=== PATIENT | male | born 1960 | race Caucasian/White ===

== ENCOUNTER 2019-07-23 08:32 | Outpatient (CLI) | payer OTHER, SELFPAY ==
--- NOTE | ~2019-07-23 | CT_ITS ---
EXAMINATION: CT chest abdomen pelvis w con DATE: 07/23/2019 09:21 INDICATION: Colorectal cancer TECHNIQUE: Computed tomography (CT) of the chest, abdomen, and pelvis was performed with 100 mL Omnip aque-350 intravenous contrast. Automated exposure control and iterative reconstruction technique were employed. The dose-length product was 376.38 mGy-cm. COMPARISON: None FINDINGS: CHEST CT: Moderate emphysema with prominent paraseptal bullous changes at the medial periphery of the right upp er and to lesser degree left upper lobes. Subtle centrilobular groundglass opacities throughout the l ungs with lower lung predominance consistent with bronchiolitis. No suspicious pulmonary nodules, mor e focal airspace consolidation, pulmonary edema or pleural effusion. No pneumothorax. Heart size is n ormal. Atherosclerotic coronary artery calcification. No pericardial effusion. Thoracic aorta is norm al in caliber with no dissection. No pathologically enlarged thoracic lymphadenopathy. Right internal jugular central venous port catheter with distal tip at the superior cavoatrial junction. Moderate u pper lumbar levoscoliosis with mild spondylosis. Moderate to severe spondylosis at the lumbar and low er cervical spine. No suspicious lytic or blastic bone lesions. ABDOMEN/PELVIS CT: Liver, gallbladder, spleen, bilateral adrenal glands and kidneys are normal. Multiple dystrophic calc ifications in the pancreas predominantly at the head and uncinate process consistent with sequela of chronic pancreatitis. Normal appendix. There is prominent wall thickening of the terminal ileum with mucosal hyperemia. Relatively mild wall thickening in the adjacent cecum. Additional short segment of circumferential wall thickening at the distal sigmoid colon which has a relatively abrupt transition to relatively normal wall thickness at the rectum which raises concern for malignancy. No bowel obst ruction. Bladder is normal. No free intraperitoneal gas or fluid. No pathologically enlarged abdomina l or pelvic lymphadenopathy. There is calcified atherosclerosis of the aorta and the lateral iliac ar teries. Bone island with spiculated margins at the right side of S1. No suspicious lytic or blastic b one lesions. IMPRESSION: 1. No evident metastatic disease in the chest, abdomen or pelvis. 2. Prominent wall thickening at the terminal ileum and to a lesser degree at the cecum consistent wit h colitis/terminal ileitis. Distribution raises suspicion for Crohn's disease with differential inclu ding infection. 3. Additional short segment of wall thickening at the distal sigmoid colon with relatively abrupt tra nsition to relatively normal wall at the rectum. Differential would include malignancy or focal colit is either inflammatory or infectious in etiology. 4. Dystrophic pancreatic calcifications consistent with sequela of chronic pancreatitis. 5. Mild to moderate upper lung and paraseptal predominant emphysema. 6. Diffuse tiny centrilobular groundglass opacities throughout both lungs with lower lung predominanc e consistent with bronchiolitis. Reviewed, dictated and finalized at location A. [employer] IMPRESSION: 1. No evident metastatic disease in the chest, abdomen or pelvis. 2. Prominent wall thickening at the terminal ileum and to a lesser degree at th e cecum consistent with colitis/terminal ileitis. Distribution raises suspicion for Crohn's disease with differential including infection. 3. Additional short segment of wall thickening at the distal sigmoid colon with relatively abrupt transition to relatively normal wall at the rectum. Differen tial would include malignancy or focal colitis either inflammatory or infectiou s in etiology. 4. Dystrophic pancreatic calcifications consistent with sequela of chronic weeks
[2019-07-23 09:12] LABS: Estimated Glomerular Filt Rate > 60
== END 2019-07-23 08:33 | disposition home or self-care (01) ==
PROVIDERS: PCP Family Medicine Adolescent Medicine; Visit Provider Internal Medicine Hematology & Oncology
DX: C19 Malignant neoplasm of rectosigmoid junction (principal); J43.9 Emphysema, unspecified; R91.8 Other nonspecific abnormal finding of lung field
CPT/HCPCS: 36415; 71260; 74177; Q9967

== ENCOUNTER 2020-09-03 08:41 | Outpatient (CLI) | payer OTHER, SELFPAY ==
--- NOTE | ~2020-09-03 | CT_ITS ---
EXAMINATION: CT chest abdomen pelvis w con DATE: 09/03/2020 09:17 INDICATION: Rectal cancer TECHNIQUE: Transaxial computed tomographic images of the chest, abdomen, and pelvis were obtained aft er the administration of 100 cc of Omnipaque 350 intravenous contrast. The dose-length product (DLP) was 539.13 mGy-cm. Automated exposure control and iterative reconstruction technique were employed. COMPARISON: 07/23/2019 FINDINGS: CHEST CT: Again noted is moderate emphysema with bullous change of the upper lobes. A right internal jugular Po rt-A-Cath ends with its tip in the distal superior vena cava. There is a new 12 mm x 8 mm pleural-bas ed nodule of the right lower lobe. There is no pleural effusion or pneumothorax. No pathologically en larged thoracic lymph nodes are identified. The heart size is normal. ABDOMEN/PELVIS CT: The liver, spleen, gallbladder, and adrenal glands are normal. There are punctate calcifications of t he pancreas, consistent with chronic pancreatitis. The kidneys are unremarkable. There is calcified a therosclerosis of the aorta and many of the other arteries. No pathologically enlarged abdominal or p elvic lymph nodes are identified. There is no free intraperitoneal gas or evidence of bowel obstructi on. Surgical changes are noted in the rectum. There also appears to have been interval resection of t he terminal ileum and ascending colon. There is severe lumbar spondylosis. IMPRESSION: 1. New indeterminate 12 mm nodule of the right lower lobe which could reflect metastatic disease, maria fernanda susu bronchogenic carcinoma, or less likely rounded atelectasis. CT-guided biopsy is recommended. Reviewed, dictated and finalized at location B. IMPRESSION: 1. New indeterminate 12 mm nodule of the right lower lobe which could reflect m etastatic disease, primary bronchogenic carcinoma, or less likely rounded atele ctasis. CT-guided biopsy is recommended.
[2020-09-03 09:12] LABS: Estimated Glomerular Filt Rate > 60
== END 2020-09-03 08:42 | disposition home or self-care (01) ==
LOC: ANHIMG 08:43
PROVIDERS: PCP Family Medicine Adolescent Medicine; Visit Provider Internal Medicine Hematology & Oncology
DX: C20 Malignant neoplasm of rectum (principal); R91.1 Solitary pulmonary nodule
CPT/HCPCS: 71260; 74177; Q9967

== ENCOUNTER 2020-09-25 08:49 | Outpatient (CLI) | payer OTHER, SELFPAY ==
--- NOTE | ~2020-09-25 | PE_ITS ---
EXAMINATION: PET skull to mid thigh DATE: 09/25/2020 10:40 INDICATION: Lung nodule TECHNIQUE: Blood glucose level was 96 mg/dL. 12.23 mCi of 18-fluorodeoxyglucose (18-FDG) was administ ered i.v. Low dose computed tomography (CT) images were acquired from the base of the brain to the pr oximal thighs for attenuation correction and anatomic localization. Positron emission tomography (PET ) images were acquired in the same distribution beginning 59 minutes after injection. Images includin g fused PET/CT images were reconstructed in axial, coronal, and sagittal planes. Automated exposure c ontrol technique was employed. The dose-length product was 394.90mGy-cm. COMPARISON: CT dated 09/03/2020 FINDINGS: Head/neck: There is symmetric increased activity in the oral cavity, parotid glands, submandibular glands, efra ngeal muscles and ocular muscles without CT correlate, likely physiologic. No pathologically enlarged cervical lymphadenopathy or suspicious foci of increased FDG uptake in the visualized head or neck. Chest: Moderate paraseptal and upper lung predominant emphysema. Again seen is a small nodular opacity at th e anterior basilar right lower lobe abutting and likely retracting the major fissure and which is wit hout associated FDG uptake. No other pulmonary nodules, pneumonia or other pulmonary infiltrates. No pleural effusion. Heart size is normal. Atherosclerotic coronary artery calcifications. Tip of the ri t internal jugular central venous port catheter at the superior cavoatrial junction. Thoracic aorta is normal in caliber. No pathologically enlarged thoracic lymphadenopathy or other suspicious FDG av id lesions in the thorax. Abdomen/pelvis/proximal thighs: Physiologic renal accumulation and excretion of FDG activity in the kidneys, bladder and along portio ns of ureters. Normal degree and heterogenous pattern of increased uptake throughout the liver withou t radiologic correlate or dominant FDG avid lesion. Numerous punctate calcifications at the head and body of the pancreas which are likely sequela of chronic pancreatitis. The gallbladder, spleen and bi lateral adrenal glands are normal. Moderate uptake scattered throughout the bowels without radiologic correlate, also likely physiologic. Change of prior bowel surgery with several anastomotic suture li mateo. There is significantly more intense FDG activity with maximal SUV of 7.8 at the anus without rad iologic correlate. Mild increased uptake at the left ischial tuberosity and overlying the bilateral g reater trochanters likely related to mild bursitis. No other abnormal foci of increased FDG uptake or pathologically enlarged lymphadenopathy in the abdomen, pelvis or proximal thighs. Musculoskeletal: Moderate upper thoracic levoscoliosis with mild compensatory dextro scoliosis in the caudal thoracic spine. Mild to moderate thoracic spondylosis with severe cervical and lumbar spondylosis. Sclerotic b one island with spiculated margins in the right sacral ala. No suspicious lytic, blastic or FDG avid bone lesions. IMPRESSION: 1. No evident FDG uptake associated with a 12 x 8 mm pleural-based nodule in the anterobasilar right lower lobe. While reassuring and favoring other old granulomatous disease or round atelectasis over m alignancy, would recommend six-month follow-up chest CT. 2. Prominent FDG uptake without radiologic correlate at the anus which could be infectious, inflammat ory or potentially malignant in etiology. Consider correlation with digital rectal examination and an oscopy. 3. Moderate emphysema. 4. Dystrophic calcifications at the head and body of the pancreas consistent with sequela of chronic pancreatitis. Reviewed, dictated and finalized at location A. IMPRESSION: 1. No
[2020-09-25 09:12] LABS: Glucose Point of Care 96 (65-105)
== END 2020-09-25 08:50 | disposition home or self-care (01) ==
PROVIDERS: PCP Family Medicine Adolescent Medicine; Visit Provider Internal Medicine Hematology & Oncology
DX: R91.1 Solitary pulmonary nodule (principal); J43.9 Emphysema, unspecified
CPT/HCPCS: 78815; 82948; A9552

== ENCOUNTER 2023-08-31 10:17 | Outpatient (CLI) | payer OTHER, SELFPAY ==
--- NOTE | 2023-10-28 08:50 | WPDPFTINT ---
PFT Procedure Performed PFT Procedure Performed Spirometry with Pre/Post Bronchodilator Plethysmography (Lung Vol) Diffusing Cap (DLCO) Flow Vol Loop PFT Interpretation Lung volumes were measured with the body plethysmography method. Lung volumes are unremarkable. Spirometry showed diminished expiratory flow rates and a diminished FEV1 to FVC ratio 37%, consistent with obstructive airway disease. Following administration of a bronchodilator there was no significant increase in expiratory flow rates. Lung diffusion capacity is severely reduced at 46% predicted. The diminished lung diffusion capacity coupled with a low alveolar volume and a low DLCO/VA ratio indicates loss of alveolar capillary structure as seen in emphysema or interstitial lung disease. Clinical correlation advised. The flow-volume loop is consistent with emphysema. Impression: Severe obstructive airway disease with no response to bronchodilators on this testing. Severely reduced lung diffusion capacity.
== END 2023-08-31 10:18 | disposition home or self-care (01) ==
LOC: ANHPFT 10:17
PROVIDERS: PCP Family Medicine Adolescent Medicine; Visit Provider Physician Assistant
DX: J44.9 Chronic obstructive pulmonary disease, unspecified (principal)
CPT/HCPCS: 94060; 94726; 94729

== ENCOUNTER 2023-11-11 08:32 | Outpatient (CLI) | payer OTHER, SELFPAY ==
[2023-11-11 08:30] VITALS: PULSE 83; O2SAT 93
[2023-11-11 08:35] VITALS: PULSE 95; O2SAT 86
[2023-11-11 08:40] VITALS: PULSE 98; O2SAT 88
[2023-11-11 08:45] VITALS: PULSE 99; O2SAT 91
[2023-11-11 09:00] VITALS: PULSE 85; O2SAT 93
--- NOTE | 2023-11-11 11:40 | HOMEO2EVAL ---
Evaluation was performed at [facility] Home Oxygen Evaluation RC: Home Oxygen (O2) Evaluation Start: 11/11/23 11:38 Freq: Status: Active Protocol: RPE Activity Type Activity Date Activity User E-sign Co-sign Detail Recorded Client Recorded Date Recorded By Document 11/11/23 08:30 REGIS [email or web address] 11/11/23 11:40 REGIS Document 11/11/23 08:35 [email or web address] [email or web address] 11/11/23 11:40 REGIS Document 11/11/23 08:40 [email or web address] [email or web address] 11/11/23 11:40 REGIS Document 11/11/23 08:45 [email or web address] [email or web address] 11/11/23 11:40 REGIS Document 11/11/23 09:00 [email or web address] [email or web address] 11/11/23 11:40 REGIS 11/11/23 11/11/23 11/11/23 08:30 08:35 08:40 Home O2 Evaluation [Oxygen] -Test Phase Resting Exercise Exercise -Oxygen Delivery Room Air Room Air Nasal Cannula -Oxygen Flow Rate (L/min) 1 [Pulse Oximetry] -Pulse Oximetry (90-100 %) 93 86 L 88 L [Pulse Rate] -Pulse Rate (60-100 beats/min) 83 95 98 [Evaluation] -Activity Tolerance [Exercise] -Ambulation Distance (feet) -Ambulation Distance (meters) [Charges] -Evaluation Charges O2 Evaluation by Pulmonary 11/11/23 11/11/23 08:45 09:00 Home O2 Evaluation [Oxygen] -Test Phase Exercise Resting -Oxygen Delivery Nasal Cannula Room Air -Oxygen Flow Rate (L/min) 2 [Pulse Oximetry] -Pulse Oximetry (90-100 %) 91 93 [Pulse Rate] -Pulse Rate (60-100 beats/min) 99 85 [Evaluation] -Activity Tolerance Good [Exercise] -Ambulation Distance (feet) 500 -Ambulation Distance (meters) 152.39 [Charges] -Evaluation Charges
== END 2023-11-11 08:33 | disposition home or self-care (01) ==
LOC: ANHPFT 08:33
PROVIDERS: PCP Family Medicine Adolescent Medicine; Visit Provider Physician Assistant
DX: J44.9 Chronic obstructive pulmonary disease, unspecified (principal)
CPT/HCPCS: 94618